=== PATIENT | male | born 1955 | race Caucasian/White ===

== ENCOUNTER 2018-12-09 13:44 | Outpatient (RCR) | payer BC ==
[~2018-12-09] VITALS: Ht 188 cm; Wt 119.7 kg
[~2018-12-09 13:44] MED LIST: ASPI-757 PO; ATOR40TA24 PO; ATR80PT PO; AZIL1TAB2 PO; BLOO-725 MC; CEFU500T50 PO; CLIN300C99 PO; DIA5 PO; HYDR-653 PO; INSU100I35 SQ; INSU200I SUBQ; INSU300I SUBQ; KET10 PO; LANI SUBQ; LOSA-54 PO; METO25TA93 PO; NOV7030I SQ; OLM20 PO; WARF5TAB23 PO; WARF7.5T13 PO
--- NOTE | 2018-12-09 15:42 | Medical Nutrition Therapy ---
Nutrition Anthropometrics Height (Inches): 74 Weight (Pounds): 264 BMI: 25.1 Wolf Nutrition Score: Wolf Nutrition Risk Score: Dietary Referral Nutrition Risk Factors: Nutrition Risk Comment: Nutrition/Food History Breakfast: 2 pkg instant oatmeal, 1/2 banana Lunch: leftover meat & veg Dinner: meat, veg, stach Snacks: protein bars, apples, carrots Nutritional Education Nutrition Education Topic: Diabetic Nutrition Learning Readiness: Interested Teaching Methods: Discussion, Handout, Demonstration Response to Teaching: Verbalize understanding, Reinforcement needed Teaching Recipient: Patient Nutrition Counseling: Pt is berny. 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 Had hip replacement surgery in Jul 2018 and states Bg has been out of contoll since then. Pt brought in 3 days of BG with reading ranging 200- 300's. Reviewed glycemic reponse and recommend pt avoid instant oatmeal d/t high glycemic index. Encouraged breakfast sandwich or old fashion oats with protein added. Reviewed plate method and encouraged pt to continues other meals ranging 30-45gm CHO. Reviewed BG and discussed adding correction dose when BG is elevated. Discussed using a continuous Glucose Monitor to check BG but stressed impirtance of having action plan when high or low. Pt is interested in trying Free stlye allie. Discussed insulin pump but pt not ready at this time. Pt refused classes but agreed to come in for individual session to review lifestyle issues, med management and CGM. Scheduled to 12/20 @ 1:00. Nutrition Monitoring & Eval RD Patient Assessment Time: [address] Assessment Type: RD Education Nutritional Comment: Provided 75 minutes diabetes education focusing on nutrition, diabetes distress issues, med management, glucose monitoring. Copies To Copies to: CARLTON BAIRD MD ; ISAEL MANZANO Dec 09, 2018 15:42
== END 2019-01-13 ==
LOC: DIET 13:44
PROVIDERS: ATTEND Family Medicine
DX: E11.40 Type 2 diabetes mellitus with diabetic neuropathy, unspecified (principal); Z79.4 Long term (current) use of insulin; Z96.643 Presence of artificial hip joint, bilateral; Z71.3 Dietary counseling and surveillance
CPT/HCPCS: G0108 ×2